=== PATIENT | male | born 1995 | race Two or more races ===

== ENCOUNTER 2020-11-09 14:15 | Emergency (ER) | payer OTHER ==
[2020-11-09 14:39] VITALS: BP 122/61
--- NOTE | 2020-11-09 15:25 | ED Physician Documentation ---
PD HPI MALE - Stated complaint Stated Complaint: MALE - Chief complaint Chief Complaint: General - History obtained from History obtained from: Patient - History of Present Illness Timing - onset: How many days ago (2) Timing - duration: Days (2) Timing - details: Gradual onset, Waxing and waning Associated symptoms: Testiclar pain, Scrotal swelling (no general swelling, but due to the pain, he was examining the scrotum and noted a small bump (nontender).). No: Dysuria, Urinary frequency, Discharge PD HPI MALE CONTRIB FACTORS: Sexually active, Homosexual. No: Exposed to STD Similar symptoms before: Has not had sx before Review of Systems Constitutional: denies: Fever, Chills Nose: denies: Rhinorrhea / runny nose, Congestion Throat: denies: Sore throat Respiratory: denies: Cough PD PAST MEDICAL HISTORY - Present Medications Home Medications: Ambulatory Orders Medication Instructions Recorded Confirmed Ibuprofen [Motrin] 600 mg PO TID PRN #25 tab 11/09/20 - Allergies Allergies/Adverse Reactions: Allergies Allergy/AdvReac Type Severity Reaction Status Date / Time No Known Drug Allergies Allergy Verified 11/09/20 14:39 PD ED PE NORMAL - Vitals Vital signs reviewed: Yes - General General: Alert and oriented X 3, No acute distress, Well developed/nourished - Abdomen Abdomen: Soft, Non tender - Male Male : Other (some tenderness left inguinal area without hernia. Scrotum with small nontendern bump inferior sac. No testicular masses nor tenderness. Not tender at epididymis. Normal lie and cremaster reflex. ) - Rectal Rectal: Deferred - Back Back: No CVA TTP - Derm Derm: Normal color, Warm and dry, No rash Results - Vitals Vitals: Oxygen O2 Source Room air - Labs Labs: Laboratory Tests 11/09/20 17:04 Urine Color YELLOW Urine Clarity CLEAR Urine pH 7.5 Ur Specific [place] 1.020 Urine Protein NEGATIVE Urine Glucose (UA) NEGATIVE Urine Ketones NEGATIVE Urine Occult Blood NEGATIVE Urine Nitrite NEGATIVE Urine Bilirubin NEGATIVE Urine Urobilinogen 0.2 (NORMAL) Ur Leukocyte Esterase NEGATIVE Ur Microscopic Review NOT INDICATED Urine Culture Comments NOT INDICATED - Rads (name of study) scrotal U/S Radiology: Prelim report reviewed (no acute process. small left hydrocele. Incidental 3 mm scrotal calcification left side. Normal blood flow. ), See rad report PD MEDICAL DECISION MAKING - ED course Complexity details: reviewed results (the bump is incidental calcification, likely some old trauma. Not related to current pain. No signs of infection. No torsion. ), re-evaluated patient, considered differential (likely muscular strain. Can get urine and U/S. The bump feels benign. ), d/w patient Departure - Departure Disposition: 01 Home, Self Care Clinical Impression: Testicular/scrotal pain Strain of left inguinal muscle Qualifiers: Encounter type: initial encounter Qualified Code(s): S39.013A - Strain of muscle, fascia and tendon of pelvis, initial encounter Condition: Stable Record reviewed to determine appropriate education?: Yes Instructions: ED Testicular Pain UKO, ED Strain Groin Prescriptions: Ibuprofen [Motrin] 600 mg PO TID PRN #25 tab PRN Reason: Pain Print Language: German Comments: Your ultrasound is normal without any problems with the's testicle or structures. The small bump is a small calcification which is relatively common and not needing any care in particular. I presume the pain is more inflammation along the muscle or ligament of the scrotum. Use some anti-inflammatory such as ibuprofen 2-3 times a day for the next several days. Activity as tolerated. Your urine test is normal without any signs of infection. I would anticipate improvement in this over the next several days. Recheck if not better in the next few days to a week. Discharge Date/Time: 11/09/20 18:09
[2020-11-09] MEDS ORDERED: IBUPROFEN 600 MG TABLET PO STA (15:42)
[2020-11-09 17:13] LABS: BILIRUBIN,URINE NEGATIVE (NEGATIVE); CLARITY,URINE CLEAR (CLEAR); GLUCOSE, URINE (UA) NEGATIVE (NEGATIVE); KETONES,URINE (UA) NEGATIVE (NEGATIVE); LEUKOCYTE ESTERASE, URINE NEGATIVE (NEGATIVE); NITRITE,URINE NEGATIVE (NEGATIVE); OCCULT BLOOD,URINE NEGATIVE (NEGATIVE); PH,URINE 7.5 PH (5.0-7.5); PROTEIN,URINE NEGATIVE (NEGATIVE); UROBILINOGEN,URINE 0.2 (NORMAL) E.U./dL (NORMAL)
--- NOTE | 2020-11-09 18:30 | Ultrasound Report ---
PROCEDURE: Testicle w/Doppler INDICATIONS: left testicle/scrotal pain for few days TECHNIQUE: Real-time scanning was performed of the scrotum and testicles, with image documentation. Color and p ulse Doppler interrogation was performed of both testicles. COMPARISON: None. FINDINGS: Right: Testicle is normal in size at 4.3 x 1.9 x 2.8 cm, and homogenous in echotexture. Epididymis is normal in overall size and morphology. No hydrocele or varicoceles. Overlying scrotal skin is no rmal in thickness. Left: Testicle is normal in size at 74.0 x 1.7 x 3.3 cm, and homogeneous in echotexture. Epididymis is normal in overall size and morphology. Small hydrocele noted. Overlying scrotal skin is normal i n thickness. There is a 3 mm calcification noted in the scrotal subcutaneous tissue laterally. Doppler: Color and pulse Doppler demonstrate normal and symmetric arterial flow in both testicles. IMPRESSION: No evidence of testicular torsion or mass lesion. Small left sided hydrocele. Incidental 3 mm soft tissue calcification noted in the left scrotum Reviewed by: Travon Kerr MD on 11/09/2020 5:29 PM [facility]DAV[facility] Approved by: Travon Kerr MD on 11/09/2020 5:29 PM [facility] Station ID: [id number]
== END 2020-11-09 18:09 | disposition home or self-care (01) ==
LOC: ED 14:15
DX: N50.819 Testicular pain, unspecified (principal); S39.013A Strain of muscle, fascia and tendon of pelvis, initial encounter; X58.XXXA Exposure to other specified factors, initial encounter; N43.3 Hydrocele, unspecified
CPT/HCPCS: 76870; 81003; 93975; 99282; 99284; A9270; 81001; 87086

== ENCOUNTER 2020-11-22 14:11 | Emergency (ER) | payer OTHER ==
--- NOTE | 2020-11-22 14:28 | ED Physician Documentation ---
PD HPI MALE - Stated complaint Stated Complaint: MALE - Chief complaint Chief Complaint: Abd Pain - History obtained from History obtained from: Patient - History of Present Illness Timing - onset: How many weeks ago (3) Timing - duration: Weeks (3) Timing - details: Gradual onset, Still present, Waxing and waning (improved some with recent NSAIDs. He states hurts more with moving and going from sitting to standing. No dysuria.) Associated symptoms: Testiclar pain (and left inguinal area.). No: Dysuria, Urinary frequency, Scrotal swelling PD HPI MALE CONTRIB FACTORS: Sexually active, Homosexual. No: Exposed to STD Recently seen: Emergency Dept (2 weeks ago with presume Dx of inguinal strain and possible epididymal inflammation. Did not seem infectious. U/S done then showed no acute process. Incidental calcification lower scrotum and small hydrocele.) Review of Systems Constitutional: denies: Fever, Chills Nose: denies: Rhinorrhea / runny nose, Congestion Throat: denies: Sore throat Respiratory: denies: Cough : denies: Dysuria, Frequency Skin: denies: Rash, Lesions Neurologic: denies: Focal weakness, Numbness PD PAST MEDICAL HISTORY - Past Medical History Cardiovascular: None Respiratory: None Neuro: None Endocrine/Autoimmune: None - Past Surgical History Past Surgical History: No - Present Medications Home Medications: Ambulatory Orders Medication Instructions Recorded Confirmed Doxycycline Hyclate 100 mg PO BID #14 11/22/20 HYDROcod/ACETAM 5/325 [[place] 5/325] 1 ea PO Q6H PRN #10 tablet 11/22/20 Meloxicam [Mobic] 7.5 mg PO BID 10 Days #14 tablet 11/22/20 - Allergies Allergies/Adverse Reactions: Allergies Allergy/AdvReac Type Severity Reaction Status Date / Time No Known Drug Allergies Allergy Verified 11/22/20 14:26 - Social History Does the pt smoke?: No Smoking Status: Never smoker Does the pt drink ETOH?: No Does the pt have substance abuse?: No - Immunizations Immunizations are current?: No - POLST Patient has POLST: No PD ED PE NORMAL - Vitals Vital signs reviewed: Yes - General General: Alert and oriented X 3, No acute distress, Well developed/nourished - Male Male : Other (similar to 2 weeks ago with tender left inguinal area without rash, mass, hernias. scrotum with small bump inferiorly without tenderness. Testicle itself not tender. Bedside U/S showing normal blood flow in testicle. Some tender mid to upper epididymis. ) - Rectal Rectal: Deferred - Derm Derm: Normal color, Warm and dry Results - Vitals Vitals: Vital Signs - 24 hr 11/22/20 11/22/20 14:18 15:42 Temperature 36 C L 36.8 C Heart Rate 67 69 Respiratory 16 17 Rate Blood Pressure 124/64 117/62 O2 Saturation 99 100 Oxygen O2 Source Room air - Labs Labs: Laboratory Tests 11/22/20 15:10 Urine Color YELLOW Urine Clarity CLEAR Urine pH 7.5 Ur Specific [place] 1.020 Urine Protein NEGATIVE Urine Glucose (UA) NEGATIVE Urine Ketones NEGATIVE Urine Occult Blood NEGATIVE Urine Nitrite NEGATIVE Urine Bilirubin NEGATIVE Urine Urobilinogen 0.2 (NORMAL) Ur Leukocyte Esterase NEGATIVE Ur Microscopic Review NOT INDICATED Urine Culture Comments NOT INDICATED PD MEDICAL DECISION MAKING - ED course Complexity details: reviewed old records, considered differential (seen 2 weeks ago for same with U/S showing no acute process (incidental hydrocele). Rx NSAIDs for presumed muscle strain or inflammatory epididymal pain. He says did not fully improve, and now worse again. Same area/pain. ), d/w patient Departure - Departure Disposition: 01 Home, Self Care Clinical Impression: Testicular/scrotal pain, Epididymal pain Strain of left inguinal muscle Qualifiers: Encounter type: initial encounter Qualified Code(s): S39.013A - Strain of muscl e, fascia and tendon of pelvis, initial encounter Condition: Stable Record reviewed to determine appropriate education?: Yes Instructions: ED Epididymitis, ED Strain Groin Follow-Up: [facility] [Provider Group] [facility] [Provider Group] Prescriptions: Doxycycline Hyclate 100 mg PO BID #14 Meloxicam [Mobic] 7.5 mg PO BID 10 Days #14 tablet HYDROcod/ACETAM 5/325 [[place] 5/325] 1 ea PO Q6H PRN #10 tablet PRN Reason: Pain Print Language: Tongan Comments: This seems likely to still be muscle strain in the groin area. However there is some tenderness in the epididymis as well. This can be inflammatory or infectious at times. We can try a different anti-inflammatory of meloxicam twice daily for a week. Add doxycycline twice daily for a week antibiotic for potential infection. To that add hydrocodone every 4-6 hours if needed for worse pain. Off work for couple of days to help reduce the pain. Follow-up with your primary care in about 3 to 4 days, call for an appointment. You could also follow-up with urology for more specialist opinion. Call the urology office to see if they have a an appointment for next week. Return if worsening. Forms: Activity restrictions Discharge Date/Time: 11/22/20 15:42
[2020-11-22] MEDS ORDERED: HYDROcod/ACETAM 5/325 MG TABLET PO STA (15:00)
[2020-11-22] MEDS ORDERED: DOXYCYCLINE 100 MG TABLET PO STA (15:00)
[2020-11-22] MEDS ORDERED: NAPROXEN 250 MG TABLET PO STA (15:00)
[2020-11-22 15:18] LABS: BILIRUBIN,URINE NEGATIVE (NEGATIVE); GLUCOSE, URINE (UA) NEGATIVE (NEGATIVE); KETONES,URINE (UA) NEGATIVE (NEGATIVE); LEUKOCYTE ESTERASE, URINE NEGATIVE (NEGATIVE); NITRITE,URINE NEGATIVE (NEGATIVE); OCCULT BLOOD,URINE NEGATIVE (NEGATIVE); PH,URINE 7.5 PH (5.0-7.5); PROTEIN,URINE NEGATIVE (NEGATIVE); UROBILINOGEN,URINE 0.2 (NORMAL) E.U./dL (NORMAL)
[2020-11-22 15:19] LABS: CLARITY,URINE CLEAR (CLEAR)
[2020-11-22 15:43] VITALS: BP 117/62
[2020-11-22 22:59] LABS: CHLAMYDIA TRACHOMATIS DNA NEGATIVE (NEGATIVE); NEISSERIA GONORRHOEAE DNA NEGATIVE (NEGATIVE)
== END 2020-11-22 15:42 | disposition home or self-care (01) ==
LOC: ED 14:11
DX: N50.819 Testicular pain, unspecified (principal); N50.82 Scrotal pain; S39.013A Strain of muscle, fascia and tendon of pelvis, initial encounter; X58.XXXA Exposure to other specified factors, initial encounter
CPT/HCPCS: 81003; 87491; 87591; 99283; A9270; 81001; 87086; 87661

== ENCOUNTER 2020-11-25 10:40 | Emergency (ER) | payer OTHER ==
--- NOTE | 2020-11-25 13:02 | ED Physician Documentation ---
PD HPI MALE - Stated complaint Stated Complaint: GROIN PX - Chief complaint Chief Complaint: Abd Pain - History obtained from History obtained from: Patient - Additional information Additional information: 2 weeks left groin pain, focused medial inguinal ligament. Worse with bearing down and peeing, but not dysuria or other urinary sx. Seen here. Testicular sono w hydrocele, otherwise NAD, started doxy yesterday, pain worse and nauseous with the doxy. Also notes now rash on penis. Review of Systems Constitutional: reports: Reviewed and negative Eyes: reports: Reviewed and negative Cardiac: reports: Reviewed and negative Respiratory: reports: Reviewed and negative PD PAST MEDICAL HISTORY - Past Medical History Cardiovascular: None Respiratory: None Neuro: None Endocrine/Autoimmune: None - Past Surgical History Past Surgical History: No - Present Medications Home Medications: Ambulatory Orders Medication Instructions Recorded Confirmed Doxycycline Hyclate 100 mg PO BID #14 11/22/20 HYDROcod/ACETAM 5/325 [[place] 5/325] 1 ea PO Q6H PRN #10 tablet 11/22/20 Meloxicam [Mobic] 7.5 mg PO BID 10 Days #14 tablet 11/22/20 Acyclovir 800 mg PO 5XD #50 tablet 11/25/20 levoFLOXacin [Levofloxacin] 500 mg PO DAILY #10 tablet 11/25/20 - Allergies Allergies/Adverse Reactions: Allergies Allergy/AdvReac Type Severity Reaction Status Date / Time No Known Drug Allergies Allergy Verified 11/25/20 11:01 - Social History Does the pt smoke?: No Smoking Status: Never smoker Does the pt drink ETOH?: No Does the pt have substance abuse?: No - Immunizations Immunizations are current?: No - POLST Patient has POLST: No PD ED PE NORMAL - Vitals Vital signs reviewed: Yes - General General: Alert and oriented X 3, No acute distress - Abdomen Abdomen: Soft, Non tender - Male Male : Other (Slightly herpetic rash on the proximal right side of the penis could be consistent with herpes, some tenderness of the medial inguinal ligament but no masses including with Valsalva and coughing. Testicles are minimally tender may be on the left, normal lie.) - Back Back: No CVA TTP, No spinal TTP - Derm Derm: Normal color, Warm and dry Results - Vitals Vitals: Vital Signs - 24 hr 11/25/20 10:58 Temperature 36.9 C Heart Rate 78 Respiratory 16 Rate Blood Pressure 131/73 H O2 Saturation 100 Oxygen O2 Source Room air PD MEDICAL DECISION MAKING - ED course ED course: 25-year-old gentleman presents with a penile rash and left groin pain, presume this is herpes. A PCR swab was done for this and he will be started on acyclovir. Also having nausea from the antibiotic and I switch him to a yolis quinolone. With the lymphadenopathy noting that he is homosexual we discussed HIV testing, but he is only had a single partner and declines. Departure - Departure Disposition: Home, Self Care Clinical Impression: Lymphadenopathy Condition: Good Record reviewed to determine appropriate education?: Yes Prescriptions: Acyclovir 800 mg PO 5XD #50 tablet levoFLOXacin [Levofloxacin] 500 mg PO DAILY #10 tablet Comments: 495 / 5000 Translation results Ernesto se mencion, creo que probablemente tiene larry infeccin por herpes y eso le estaba causando la inflamacin de los ganglios linfticos en la haim. Estamos haciendo pruebas de herpes, nuevamente los resultados deberan estar de vuelta en unos linares y te llamar. [place] se mencion, creo que probablemente tiene larry infeccin por herpes y eso le estaba causando la inflamacin de los ganglios linfticos en la haim. Llame a paulino mdico para programar larry nila de seguimiento, programe la prxima nila disponible. Mientras tanto, regrese en cualquier momento si empeora o si aparecen nuevos sntomas. Forms: Activity restrictions
[2020-11-25 15:43] VITALS: BP 118/71
--- NOTE | 2020-11-25 15:45 | Ultrasound Report ---
PROCEDURE: Testicle w/Doppler INDICATIONS: L groin pain TECHNIQUE: Real-time scanning was performed of the scrotum and testicles, with image documentation. Color and p ulse Doppler interrogation was performed of both testicles. COMPARISON: November 09, 2020 testicular ultrasound FINDINGS: Right: Testicle is normal in size at 3.8 x 2.1 x 2.7 cm, and homogenous overall in echotexture. A f ew scattered microliths are unchanged. Epididymis is normal in overall size and morphology. No hydro rosa or varicoceles. Overlying scrotal skin is normal in thickness. Left: Testicle is normal in size at 3.7 x 1.8 x 2.6 cm, and homogeneous overall in echotexture. A f ew scattered microliths are unchanged. Epididymis is normal in overall size and morphology. No hydro rosa or varicoceles. Overlying scrotal skin is normal in thickness. Doppler: Color and pulse Doppler demonstrate normal and symmetric arterial flow in both testicles. Previously seen calcification within the scrotal soft tissues is not appreciated on today's evaluatio n. IMPRESSION: No evidence of testicular torsion or inflammation. Low density testicular microlithiasis. Reviewed by: Delio Purcell on 11/25/2020 2:43 PM BOB Approved by: Delio Purcell on 11/25/2020 2:43 PM BOB Station ID: [id number]
--- NOTE | 2020-11-25 15:48 | Ultrasound Report ---
PROCEDURE: Pelvic Limited or F/U INDICATIONS: L GROIN;EVAL INGUINAL CANAL TECHNIQUE: Real-time transabdominal scanning was performed of the left groin, with image documentation. COMPARISON: None. FINDINGS: Sonographic evaluation of the left groin shows no evidence of hernia. There are numerous morphologica lly normal-appearing and normal-sized lymph nodes highlighted in the left groin. No solid mass or abnormal fluid collection. IMPRESSION: No enlarged lymph nodes. Lymph nodes imaged in the left groin are of normal morphology a nd size. If there is clinical tenderness, recommend clinical follow-up to ensure resolution. Reviewed by: Delio Purcell on 11/25/2020 2:46 PM BOB Approved by: Delio Purcell on 11/25/2020 2:46 PM BOB Station ID: [id number]
== END 2020-11-25 15:46 | disposition home or self-care (01) ==
LOC: ED 10:40
DX: A60.01 Herpesviral infection of penis (principal); R59.0 Localized enlarged lymph nodes; R11.0 Nausea; T36.4X5A Adverse effect of tetracyclines, initial encounter
CPT/HCPCS: 87529; 93975; 99284

== ENCOUNTER 2021-02-07 20:08 | Emergency (ER) | payer OTHER ==
[2021-02-07 20:35] LABS: BASOPHILS % (AUTO) 0.5 %; EOSINOPHILS # (AUTO) 0.1 10^3/uL (0.0-0.7); EOSINOPHILS % (AUTO) 0.6 %; HCT - HEMATOCRIT 45.5 % (42.0-52.0); HGB - HEMOGLOBIN 16.4 g/dL (14.0-18.0); LYMPHOCYTES # (AUTO) 3.1 10^3/uL (1.5-3.5); LYMPHOCYTES % (AUTO) 37.5 %; MEAN CORPUSCULAR HEMOGLOBIN 31.1 pg (27.0-31.0); MEAN CORPUSCULAR VOLUME 86.3 fL (80.0-94.0); MEAN PLATELET VOLUME 10.5 fL (7.4-11.4); MONOCYTES # (AUTO) 0.6 10^3/uL (0.0-1.0); MONOCYTES % (AUTO) 7.4 %; NEUTROPHILS # (AUTO) 4.4 10^3/uL (1.5-6.6); NEUTROPHILS % (AUTO) 53.8 %; PLT - PLATELET COUNT 241 10^3/uL (130-450); RED BLOOD COUNT 5.27 10^6/uL (4.70-6.10); RED CELL DISTRIBUTION WIDTH 11.8 % (12.0-15.0); WHITE BLOOD COUNT 8.2 x10^3/uL (4.8-10.8)
[2021-02-07 20:46] LABS: ALBUMIN 5.1 g/dL (3.2-5.5); ALBUMIN/GLOBULIN RATIO 1.4 (1.0-2.2); BILIRUBIN,TOTAL 1.5 mg/dL (0.2-1.0); CREATININE 1.3 mg/dL (0.6-1.2); POTASSIUM 2.6 mmol/L (3.5-5.0); TOTAL PROTEIN 8.8 g/dL (6.7-8.2)
--- NOTE | 2021-02-07 21:06 | XRAY Report ---
PROCEDURE: Chest 1 View X-Ray INDICATIONS: chest pain TECHNIQUE: One view of the chest was acquired. COMPARISON: None. FINDINGS: Surgical changes and devices: None. Lungs and pleura: No pleural effusions or pneumothorax. Lungs are clear. Mediastinum: Mediastinal contours appear normal. Heart size is normal. Bones and chest wall: No suspicious bony lesions. Overlying soft tissues appear unremarkable. IMPRESSION: Chest without acute cardiopulmonary abnormalities. Reviewed by: Mikey Diaz MD on 02/07/2021 9:05 PM [facility] Approved by: Mikey Diaz MD on 02/07/2021 9:05 PM [facility] Station ID: [id number]
[2021-02-07] MEDS ORDERED: SODIUM CHLORIDE 0.9% 1,000 ML IV STA ×2 (21:08→21:32)
--- NOTE | 2021-02-07 21:10 | ED Physician Documentation ---
History of Present Illness - Stated complaint Stated Complaint: SOA - Chief complaint Chief Complaint: Resp - History obtained from History obtained from: Patient, Other (spouse () who is in ED at bedside. There is a language barrier: patient speaks Armenian but is able to communicate to some extent with me in Armenian, and patients spouse is able to translate, as well. The translating service ([employer]) is down at this time) - History of Present Illness Timing: Enter time (12:00), Today Pain level max: 0 Pain level now: 0 Improved by: rest Worsened by: standing, amublation - Additonal information Additional information: since approximately noon today, patient has had been dizzy/lightheaded, felt like he was going to pass out, nausea and vomiting, generalized weakness. Symptoms are worse with standing but no vertigo component (not worse with moving/turning head). Review of Systems Constitutional: reports: Reviewed and negative Eyes: reports: Reviewed and negative Cardiac: reports: Reviewed and negative Respiratory: reports: Reviewed and negative GI: reports: Nausea, Vomiting. denies: Abdominal Pain Neurologic: reports: Generalized weakness. denies: Focal weakness, Numbness, Headache PD PAST MEDICAL HISTORY - Past Medical History Cardiovascular: None Respiratory: None Neuro: None Endocrine/Autoimmune: None - Past Surgical History Past Surgical History: No - Present Medications Home Medications: Ambulatory Orders Medication Instructions Recorded Confirmed buPROPion [Wellbutrin Sr] 100 mg PO DAILY 02/07/21 02/07/21 - Allergies Allergies/Adverse Reactions: Allergies Allergy/AdvReac Type Severity Reaction Status Date / Time No Known Drug Allergies Allergy Verified 02/07/21 20:29 - Social History Does the pt smoke?: No Smoking Status: Never smoker Does the pt drink ETOH?: No Does the pt have substance abuse?: No - Immunizations Immunizations are current?: No - POLST Patient has POLST: No PD ED PE NORMAL - Vitals Vital signs reviewed: Yes - General General: Alert and oriented X 3, No acute distress, Well developed/nourished - HEENT HEENT: Atraumatic, PERRL, EOMI - Neck Neck: Supple, no meningeal sign - Cardiac Cardiac: RRR, No murmur, No gallop, No rub - Respiratory Respiratory: No respiratory distress, Clear bilaterally - Abdomen Abdomen: Soft, Non tender - Derm Derm: Normal color, Warm and dry - Neuro Neuro: Alert and oriented X 3, 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, No motor deficit, No sensory deficit, Normal speech Eye Opening: Spontaneous Motor: Obeys Commands Verbal: Oriented GCS Score: 15 Results - Vitals Vitals: Oxygen O2 Source Room air - Labs Labs: Laboratory Tests 02/07/21 02/07/21 02/07/21 20:16 20:16 20:56 WBC 8.2 RBC 5.27 Hgb 16.4 Hct 45.5 MCV 86.3 MCH 31.1 H MCHC 36.0 RDW 11.8 L Plt Count 241 MPV 10.5 Neut # (Auto) 4.4 Lymph # (Auto) 3.1 [place] # (Auto) 0.6 Eos # (Auto) 0.1 Baso # (Auto) 0.0 Absolute Nucleated RBC 0.00 Nucleated RBC % 0.0 Sodium 139 Potassium 2.6 L Chloride 101 Carbon Dioxide 23 Anion Gap 15.0 H BUN 19 Creatinine 1.3 H Estimated GFR (MDRD) 67 L Glucose 115 H Calcium 10.0 Total Bilirubin 1.5 H AST 25 ALT 18 Alkaline Phosphatase 60 Troponin I High Sens 2.6 Total Protein 8.8 H Albumin 5.1 Globulin 3.7 Albumin/Globulin Ratio 1.4 Lipase 55 H - Rads (name of study) chest xray Radiology: Prelim report reviewed PD MEDICAL DECISION MAKING - ED course Complexity details: reviewed results, re-evaluated patient, considered differential, d/w patient ED course: presents after symptoms suggestive of near-syncope although he also provided descriptors to ED RN when triaged regarding dyspnea and muscle cramping that could also suggest a component of anxiety (with hyperventilation syndrome). He is found to be hypokalemic with potassium of 2.6. He is given IV and PO potassium, 2 liters NS, 4mg IV zofran. On reevaluation, he reports feeling much improved and is comfortable with d/c home Departure - Departure Disposition: 01 Home, Self Care Clinical Impression: Dizziness, Hypokalemia Condition: Good Instructions: ED Dizziness UKO, ED Potassium Deficiency Print Language: Armenian Comments: Tonight's tests do not reveal a cause of your symptoms. Your potassium level is low, but this would be unlikely to cause the symptoms you describe. Follow up with your primary care provider for reevaluation. Discharge Date/Time: 02/07/21:17
[2021-02-07] MEDS ORDERED: POTASSIUM CHLORIDE 20 MEQ TABLET PO STA (21:31)
[2021-02-07] MEDS ORDERED: POTASSIUM CHLOR 10 MEQ/100 ML 10 MEQ/100 ML BAG IV STA (21:31)
[2021-02-07] MEDS ORDERED: ONDANSETRON 4 MG/2 ML VIAL IVP STA (21:32)
[2021-02-07 22:36] VITALS: BP 118/83
== END 2021-02-07 23:17 | disposition home or self-care (01) ==
LOC: ED 20:08
DX: R42 Dizziness and giddiness (principal); E87.6 Hypokalemia; I49.3 Ventricular premature depolarization; R11.2 Nausea with vomiting, unspecified; R53.1 Weakness; R06.00 Dyspnea, unspecified
CPT/HCPCS: 36415; 71045; 80053; 83690; 84484; 85025; 93005; 96361; 96374; 99283; 99284; A9270

== ENCOUNTER 2021-06-30 18:45 | Emergency (ER) | payer OTHER ==
[2021-06-30 19:47] LABS: BILIRUBIN,URINE NEGATIVE (NEGATIVE); GLUCOSE, URINE (UA) NEGATIVE (NEGATIVE); KETONES,URINE (UA) NEGATIVE (NEGATIVE); LEUKOCYTE ESTERASE, URINE NEGATIVE (NEGATIVE); NITRITE,URINE NEGATIVE (NEGATIVE); OCCULT BLOOD,URINE NEGATIVE (NEGATIVE); PH,URINE 6.5 PH (5.0-7.5); PROTEIN,URINE NEGATIVE (NEGATIVE); UROBILINOGEN,URINE 0.2 (NORMAL) E.U./dL (NORMAL)
--- NOTE | 2021-06-30 19:48 | ED Physician Documentation ---
History of Present Illness - Stated complaint Stated Complaint: MALE - Chief complaint Chief Complaint: General - Additonal information Additional information: 25-year-old male comes to the emergency department for evaluation of primarily left scrotal pain. He reports that this has been a recurrent problem since October 2020. He has been seen here for this previously and was initially thought to perhaps have a groin strain. He states that when he urinates it is often painful and sometimes there is white sediment. He has had no fevers. No scrotal swelling. No history of STD. He is sexually active with men. He reports 100% condom use. Review of Systems Constitutional: denies: Fever, Chills Nose: reports: Reviewed and negative Throat: reports: Reviewed and negative Cardiac: reports: Reviewed and negative Respiratory: reports: Reviewed and negative GI: reports: Reviewed and negative : reports: Dysuria, Testicular pain. denies: Discharge Skin: reports: Reviewed and negative Musculoskeletal: reports: Reviewed and negative PD PAST MEDICAL HISTORY - Past Medical History Past Medical History: No Cardiovascular: None Respiratory: None Neuro: None Endocrine/Autoimmune: None - Past Surgical History Past Surgical History: No - Present Medications Home Medications: Ambulatory Orders Medication Instructions Recorded Confirmed No Known Home Medications 06/30/21 06/30/21 - Allergies Allergies/Adverse Reactions: Allergies Allergy/AdvReac Type Severity Reaction Status Date / Time No Known Drug Allergies Allergy Verified 06/30/21 18:55 - Social History Does the pt smoke?: No Smoking Status: Never smoker Does the pt drink ETOH?: No Does the pt have substance abuse?: No - Immunizations Immunizations are current?: No - POLST Patient has POLST: No PD ED PE EXPANDED - General General: Alert, No acute distress - Male Male : Normal lie/cremastaric, Tenderness (Mild tenderness of the left testicle and epididymis. No inguinal lymphadenopathy.), Geophysical Prospector present. No: Circumcised, Skin lesions, Discharge, Testicular Mass Results - Vitals Vitals: Vital Signs - 24 hr 06/30/21 18:55 Temperature 37.2 C Heart Rate 80 Respiratory 19 Rate Blood Pressure 116/74 O2 Saturation 100 Oxygen O2 Source Room air - Labs Labs: Laboratory Tests 06/30/21 19:24 Urine Color YELLOW Urine Clarity CLEAR Urine pH 6.5 Ur Specific [place] 1.020 Urine Protein NEGATIVE Urine Glucose (UA) NEGATIVE Urine Ketones NEGATIVE Urine Occult Blood NEGATIVE Urine Nitrite NEGATIVE Urine Bilirubin NEGATIVE Urine Urobilinogen 0.2 (NORMAL) Ur Leukocyte Esterase NEGATIVE Ur Microscopic Review NOT INDICATED Urine Culture Comments NOT INDICATED - Rads (name of study) testicular us Radiology: Other (Per instrument technologist no findings of epididymitis or orchiditis. Possible small left inguinal hernia) PD MEDICAL DECISION MAKING - ED course Complexity details: reviewed results, re-evaluated patient, d/w patient ED course: 25-year-old male presents emergency department for evaluation of 8 months left groin pain he does report history of sex with men but consistently uses condoms. He also reports dysuria though the urine shows no signs of infection. Previous STI testing was negative. GC testing is pending today. 9 his exam was unremarkable though he did have some testicular tenderness on the left. Ultrasound did an exam and found no findings of epididymitis or orchitis but they do suspect he has a very small left inguinal hernia. This finding was discussed with the patient using a Luxembourger teleinterpreter. Patient is advised to follow-up closely with [facility] to obtain surgical referral. Emergent return precautions otherwise discussed Departure - Departure Clinical Impression: Left inguinal hernia Condition: Stable Record reviewed to determine appropriate education?: Yes Print Language: Luxembourger Comments: Song ibarra were seen today in the emergency department for pain in your left groin. We did do an ultrasound of your groin and testicles. It looks like you have a very small left inguinal hernia. This is the most likely cause of your pain. You need to discuss this with [facility] as they should make a referral for you to a surgeon to determine if it can or should be repaired An inguinal hernia occurs when tissue, such as part of the intestine, protrudes through a weak spot in the abdominal muscles. The resulting bulge can be painful, especially when you cough, bend over or lift a heavy object. However, many hernias do not cause pain. An inguinal hernia isn't necessarily dangerous. It doesn't improve on its own, however, and can lead to life-threatening complications. Your doctor is likely to recommend surgery to fix an inguinal hernia that's painful or enlarging. Inguinal hernia repair is a common surgical procedure. Srinivas, ted fue visto hoy en el departamento de emergencias por dolor en la haim izquierda. Hicimos larry ecografa de la haim y los testculos. Parece que tiene larry hernia inguinal izquierda muy pequea. Esta es la causa ms probable de paulino dolor. Debe discutir esto con el mdico de andre Goodwin, ya que deben hacer larry referencia para usted a un cirujano para determinar si puede o debe repararse. Larry hernia inguinal ocurre cuando el tejido, antonette parte del intestino, sobresale a travs de un punto dbil en los msculos abdominales. La protuberancia resultante puede ser dolorosa, especialmente cuando tose, se agacha o levanta un objeto pesado. Sin embargo, muchas hernias no causan dolor. Larry hernia inguinal no es necesariamente peligrosa. Sin embargo, no mejora por s solo y puede provocar complicaciones potencialmente mortales. Es probable que paulino mdico le recomiende larry ciruga para reparar larry hernia inguinal que es dolorosa o agrandada. La reparacin de la hernia inguinal es un procedimiento q uirrgico comn
[2021-06-30 19:53] LABS: CLARITY,URINE CLEAR (CLEAR)
--- NOTE | 2021-06-30 21:00 | Ultrasound Report ---
PROCEDURE: Testicle w/Doppler INDICATIONS: testicular pain; pain with sex TECHNIQUE: Real-time scanning was performed of the scrotum and testicles, with image documentation. Color and p ulse Doppler interrogation was performed of both testicles. COMPARISON: Prior testicular ultrasound studies 11/25/2020 and 11/09/2020.. FINDINGS: Right: Testicle is normal in size at 4.3 x 2.0 x 2.6 cm, and homogenous in echotexture. Epididymis is normal in overall size and morphology. No hydrocele or varicoceles. Overlying scrotal skin is no rmal in thickness. Left: Testicle is normal in size at 3.9 x 2.0 x 2.7 cm, and homogeneous in echotexture. Epididymis is normal in overall size and morphology. No hydrocele or varicoceles. Overlying scrotal skin is no rmal in thickness. There is a questionable nonreducible fat-containing left inguinal hernia with a r elatively small suspected hernia measuring 2.5 x 0.6 cm. Doppler: Color and pulse Doppler demonstrate normal and symmetric arterial flow in both testicles. IMPRESSION: No testicular or epididymitis abnormality found, no evidence of testicular torsion. Possible small no nreducible left inguinal hernia. Depending on the clinical status follow-up by dedicated CT scanning through this area may be warranted. Reviewed by: Winston Dalal MD on 06/30/2021 8:59 PM PDT Approved by: Winston Dalal MD on 06/30/2021 8:59 PM PDT Station ID: [id number]
[2021-06-30 21:03] VITALS: BP 114/78
== END 2021-06-30 21:07 | disposition home or self-care (01) ==
LOC: ED 18:45
DX: K40.90 Unilateral inguinal hernia, without obstruction or gangrene, not specified as recurrent (principal)
CPT/HCPCS: 81001; 81003; 87086; 93975; 99282; 99284

== ENCOUNTER 2021-09-27 11:15 | Emergency (ER) | payer OTHER ==
[2021-09-27 11:28] VITALS: BP 133/63
--- OUTSIDE RECORDS SUMMARY | 2021-09-27 11:53 | EXTERNAL MEDICAL SUMMARY RPT | Continuity of Care Document ---
:1995 Author Organization [place] Address [address] [place] [address] Phone Allergies and Intolerances date description facility type (no date) No Known Drug Allergies [facility] (unkn own) Encounters No information. Functional Status No information. Immunizations No information. Medications date description facility [id number] Levofloxacin 750 MG Oral Tablet [facility] [id number] emtricitabine-tenofovir (tdf) All [id number]+0000 emtricitabine-tenofovir (tdf) All Problems No information. Procedures date description facility [id number] [facility] Results/Labs test date author facility value unit interpret ation Result panel 1 (unknown) (no date) (unknown) (unknown) 0.2 E.U./dL (unkn own) (unknown) (no date) (unknown) (unknown) 1.020 (units (unkn own) unknown) (unknown) (no date) (unknown) (unknown) 2+ (units (unkn own) unknown) (unknown) (no date) (unknown) (unknown) 7.0 (units (unkn own) unknown) (unknown) (no date) (unknown) (unknown) NEGATIVE (units (unkn own) unknown) (unknown) (no date) (unknown) (unknown) NEGATIVE g/dL (unkn own) (unknown) (no date) (unknown) (unknown) SL CLOUDY (units (unk nown) unknown) (unknown) (no date) (unknown) (unknown) TRACE (units (unkn own) unknown) (unknown) (no date) (unknown) (unknown) YELLOW (units (unkn own) unknown) Result panel 2 (unknown) (no date) (unknown) (unknown) 0-1 /HPF (units (unkn own) unknown) (unknown) (no date) (unknown) (unknown) 0-1/HPF (units (unkn own) unknown) (unknown) (no date) (unknown) (unknown) 0.2 E.U./dL (unkn own) (unknown) (no date) (unknown) (unknown) 1+ (units (unkn own) unknown) (unknown) (no date) (unknown) (unknown) 1-5/HPF (units (unkn own) unknown) (unknown) (no date) (unknown) (unknown) 1.020 (units (unkn own) unknown) (unknown) (no date) (unknown) (unknown) 2+ (units (unkn own) unknown) (unknown) (no date) (unknown) (unknown) 7.0 (units (unkn own) unknown) (unknown) (no date) (unknown) (unknown) Cult Not (units (unkn own) Indicated unknown) (unknown) (no date) (unknown) (unknown) NEGATIVE (units (unkn own) unknown) (unknown) (no date) (unknown) (unknown) NEGATIVE g/dL (unkn own) (unknown) (no date) (unknown) (unknown) None Seen (units (unk nown) unknown) (unknown) (no date) (unknown) (unknown) SL CLOUDY (units (unk nown) unknown) (unknown) (no date) (unknown) (unknown) TRACE (units (unkn own) unknown) (unknown) (no date) (unknown) (unknown) YELLOW (units (unkn own) unknown) Result panel 3 (unknown) (no (unknown) (unknown) (no value) (units (unk nown) date) unknown) (unknown) (no (unknown) (unknown) [address] [place] [address] (units (unknown) date) unknown) (unknown) (no (unknown) (unknown) [place], [place] (units ( unknown) date) [id number] unknown) (unknown) (no (unknown) (unknown) [facility] (units (unknown) date) unknown) (unknown) (no (unknown) (unknown) Signed (units (unkno wn) date) unknown) (unknown) (no (unknown) (unknown) Ultrasound (units (unk nown) date) Report unknown) (unknown) (no (unknown) (unknown) (no value) (units (unk nown) date) unknown) (unknown) (no (unknown) (unknown) 08/13/21 (units (unkno wn) date) unknown) (unknown) (no (unknown) (unknown) 1. Left (units (unkno wn) date) varicocele unknown) demonstrated. (unknown) (no (unknown) (unknown) 2. Mild (units (unkno wn) date) increased unknown) vascularity within the left epididymis may reflect a possible (unknown) (no (unknown) (unknown) Approved by: (units (u nknown) date) Rafal Stovall, unknown) Krish on 08/13/2021 at 20:49 (unknown) (no (unknown) (unknown) COMPARISON: (units (un known) date) None. unknown) (unknown) (no (unknown) (unknown) Color and pulse (units (unknown) date) Doppler unknown) interrogation was performed of both testicles. (unknown) (no (unknown) (unknown) Dictated by: (units (u nknown) date) Rafal Stovall, unknown) Krish on 08/13/2021 at 20:45 (unknown) (no (unknown) (unknown) Doppler: Color (units (unknown) date) and pulse Doppler unknown) demonstrate patent arterial and venous flow (unknown) (no (unknown) (unknown) Epididymis is (units ( unknown) date) normal in overall unknown) size and morphology. No hydrocele or (unknown) (no (unknown) (unknown) Epididymis is (units ( unknown) date) normal in overall unknown) size and morphology. There is suggestion of (unknown) (no (unknown) (unknown) FINDINGS: (units (unkn own) date) unknown) (unknown) (no (unknown) (unknown) IMPRESSION: (units (un known) date) unknown) (unknown) (no (unknown) (unknown) INDICATIONS: (units (u nknown) date) TESTICULAR PAIN unknown) (unknown) (no (unknown) (unknown) Left: Testicle (units (unknown) date) measures 3.9 x unknown) 2.5 x 2.6 cm and appears homogeneous in (unknown) (no (unknown) (unknown) Overlying (units (unkn own) date) scrotal skin is unknown) normal in thickness. (unknown) (no (unknown) (unknown) Real-time (units (unkn own) date) scanning was unknown) performed of the scrotum and testicles, with image (unknown) (no (unknown) (unknown) Right: Testicle (units (unknown) date) measures 4.1 x unknown) 2.7 x 2.6 cm and appears homogenous in (unknown) (no (unknown) (unknown) TECHNIQUE: (units (unk nown) date) unknown) (unknown) (no (unknown) (unknown) epididymitis. (units ( unknown) date) unknown) (unknown) (no (unknown) (unknown) increased (units (unkn own) date) vascularity unknown) within the epididymis. No hydrocele. There is a left (unknown) (no (unknown) (unknown) measuring up to (units (unknown) date) approximately 0.4 unknown) cm with increased vascularity during (unknown) (no (unknown) (unknown) testicles (units (unkn own) date) bilaterally. No unknown) definite asymmetrically increased flow demonstrated. (unknown) (no (unknown) (unknown) Accession (units (unkn own) date) Number: unknown) [id number] (unknown) (no (unknown) (unknown) Age/Sex: 26 / M (units (unknown) date) Date of unknown) Service: (unknown) (no (unknown) (unknown) : 1995 (units (unknown) date) Acct:[id number] unknown) (unknown) (no (unknown) (unknown) Loc: ED (units (unkno wn) date) unknown) (unknown) (no (unknown) (unknown) [id number] (units (unk nown) date) unknown) (unknown) (no (unknown) (unknown) Ordering (units (unkno wn) date) Provider: unknown) Ama Barr (unknown) (no (unknown) (unknown) PROCEDURE: US (units (unknown) date) SCROTUM unknown) (unknown) (no (unknown) (unknown) Patient: (units (unkno wn) date) Song Romo unknown) MR#: (unknown) (no (unknown) (unknown) Procedure: US (units ( unknown) date) scrotum unknown) (unknown) (no (unknown) (unknown) Valsalva. (units (unkn own) date) unknown) (unknown) (no (unknown) (unknown) documentation. (units (unknown) date) unknown) (unknown) (no (unknown) (unknown) echotexture. (units (u nknown) date) unknown) (unknown) (no (unknown) (unknown) mild (units (unkno wn) date) unknown) (unknown) (no (unknown) (unknown) varicocele (units (unk nown) date) unknown) (unknown) (no (unknown) (unknown) varicoceles. (units (u nknown) date) unknown) (unknown) (no (unknown) (unknown) within the (units (unk nown) date) unknown) Result panel 4 (unknown) (no date) (unknown) (unknown) NOT DETECTED (units ( unknown) unknown) Result panel 5 (unknown) (no (unknown) (unknown) (no value) (units (unk nown) date) unknown) (unknown) (no (unknown) (unknown) Date of Service: (units (unknown) date) 08/13/21 unknown) (unknown) (no (unknown) (unknown) (no value) (units (unk nown) date) unknown) (unknown) (no (unknown) (unknown) Allergies (units (unkn own) date) unknown) (unknown) (no (unknown) (unknown) ED Orders (units (unkn own) date) unknown) (unknown) (no (unknown) (unknown) Emergency Report (units (unknown) date) unknown) (unknown) (no (unknown) (unknown) [facility] (units (unknown) date) [address] unknown) [place] [address] (unknown) (no (unknown) (unknown) Lab Results (units (un known) date) unknown) (unknown) (no (unknown) (unknown) Vital Signs - 8 (units (unknown) date) hr unknown) (unknown) (no (unknown) (unknown) (no value) (units (unk nown) date) unknown) (unknown) (no (unknown) (unknown) 08/13/21 (units (unkno wn) date) 08/13/21 unknown) Range/Units (unknown) (no (unknown) (unknown) 18:05 18:05 (units (un known) date) unknown) (unknown) (no (unknown) (unknown) 08/13/21 (units (unkno wn) date) unknown) (unknown) (no (unknown) (unknown) [id number] (units (unkn own) date) unknown) (unknown) (no (unknown) (unknown) 08/13/21 18:05 (units (unknown) date) unknown) (unknown) (no (unknown) (unknown) 08/13/21 19:20 (units (unknown) date) unknown) (unknown) (no (unknown) (unknown) 17:51 (units (unkno wn) date) unknown) (unknown) (no (unknown) (unknown) Age/Sex: 26 / M (units (unknown) date) unknown) (unknown) (no (unknown) (unknown) Allergy/AdvReac (units (unknown) date) Type Severity unknown) Reaction Status Date / Time (unknown) (no (unknown) (unknown) Amorphous (units (unkn own) date) Sediment 1+ unknown) (unknown) (no (unknown) (unknown) Blood Pressure (units (unknown) date) 130/75 08/13/21 unknown) 17:51 (unknown) (no (unknown) (unknown) Blood Pressure (units (unknown) date) 130/75 unknown) (unknown) (no (unknown) (unknown) Chief complaint: (units (unknown) date) Urogenital-Male unknown) (unknown) (no (unknown) (unknown) Chlamydia (units (unkn own) date) Gonorrhea PCR unknown) -URINE Stat (unknown) (no (unknown) (unknown) Course (units (unkno wn) date) unknown) (unknown) (no (unknown) (unknown) : 1995 (units (unknown) date) Acct:[id number] unknown) (unknown) (no (unknown) (unknown) ER Physician: (units ( unknown) date) Nicolas Whitehead unknown) D.O. (unknown) (no (unknown) (unknown) Exam (units (unkno wn) date) unknown) (unknown) (no (unknown) (unknown) General (units (unkno wn) date) unknown) (unknown) (no (unknown) (unknown) HPI - Male (units (unk nown) date) Genitourinary unknown) (unknown) (no (unknown) (unknown) Initial Vital (units ( unknown) date) Signs unknown) (unknown) (no (unknown) (unknown) Initial Vital (units ( unknown) date) Signs: unknown) (unknown) (no (unknown) (unknown) Lab Data (units (unkno wn) date) unknown) (unknown) (no (unknown) (unknown) Labs: (units (unkno wn) date) unknown) (unknown) (no (unknown) (unknown) MDM - Male (units (unk nown) date) Genitourinary unknown) (unknown) (no (unknown) (unknown) Mode of arrival: (units (unknown) date) Ambulatory unknown) (unknown) (no (unknown) (unknown) N gonorrhoeae (units ( unknown) date) DNA (PCR) Not unknown) detected (unknown) (no (unknown) (unknown) No Known Drug (units ( unknown) date) Allergies Allergy unknown) Verified 08/13/21 17:53 (unknown) (no (unknown) (unknown) Ordered: (units (unkno wn) date) unknown) (unknown) (no (unknown) (unknown) Orders (units (unkno wn) date) unknown) (unknown) (no (unknown) (unknown) Patient: (units (unkno wn) date) Song Romo unknown) MR#: M (unknown) (no (unknown) (unknown) Pulse Oximetry (units (unknown) date) 100 08/13/21 unknown) 17:51 (unknown) (no (unknown) (unknown) Pulse Oximetry (units (unknown) date) 100 unknown) (unknown) (no (unknown) (unknown) Pulse Rate 75 (units (unknown) date) 08/13/21 17:51 unknown) (unknown) (no (unknown) (unknown) Pulse Rate 75 (units ( unknown) date) unknown) (unknown) (no (unknown) (unknown) Related Data (units (u nknown) date) unknown) (unknown) (no (unknown) (unknown) Respiratory Rate (units (unknown) date) 20 08/13/21 unknown) 17:51 (unknown) (no (unknown) (unknown) Respiratory Rate (units (unknown) date) 20 unknown) (unknown) (no (unknown) (unknown) Signed By: (units (unk nown) date) unknown) (unknown) (no (unknown) (unknown) Source: patient (units (unknown) date) unknown) (unknown) (no (unknown) (unknown) Stated (units (unkno wn) date) complaint: unknown) SCROTAL AND LEFT TESICULAR PAIN (unknown) (no (unknown) (unknown) Temperature (units (un known) date) 98.9 F 08/13/21 unknown) 17:51 (unknown) (no (unknown) (unknown) Temperature 98.9 (units (unknown) date) F unknown) (unknown) (no (unknown) (unknown) Time Seen by (units (u nknown) date) Provider: unknown) 08/13/21 19:19 (unknown) (no (unknown) (unknown) US scrotum Stat (units (unknown) date) unknown) (unknown) (no (unknown) (unknown) Ur Chlamydia DNA (units (unknown) date) (PCR) Not unknown) detected (unknown) (no (unknown) (unknown) Ur Culture (units (unk nown) date) Indicated? Cult unknown) not indicated (unknown) (no (unknown) (unknown) Ur Leukocyte (units (u nknown) date) Esterase unknown) Negative (NEGATIVE) (unknown) (no (unknown) (unknown) Ur Specific (units (un known) date) [place] 1.020 unknown) (1.000-1.035) (unknown) (no (unknown) (unknown) Ur Squamous (units (un known) date) Epith Cells 0-1 unknown) /hpf (0-5/HPF) (unknown) (no (unknown) (unknown) Urinalysis and (units (unknown) date) Microscopic Stat unknown) (unknown) (no (unknown) (unknown) Urine Appearance (units (unknown) date) Sl cloudy unknown) (unknown) (no (unknown) (unknown) Urine Bacteria (units (unknown) date) None seen unknown) (None) (unknown) (no (unknown) (unknown) Urine Bilirubin (units (unknown) date) Negative unknown) (NEGATIVE) (unknown) (no (unknown) (unknown) Urine Color (units (un known) date) Yellow unknown) (unknown) (no (unknown) (unknown) Urine Glucose (units ( unknown) date) (UA) Negative unknown) (Negative) g/dL (unknown) (no (unknown) (unknown) Urine Ketones (units ( unknown) date) Negative unknown) (NEGATIVE) (unknown) (no (unknown) (unknown) Urine Nitrate (units ( unknown) date) Negative unknown) (Negative) (unknown) (no (unknown) (unknown) Urine Occult (units (u nknown) date) Blood 2+ H unknown) (Negative) (unknown) (no (unknown) (unknown) Urine Protein (units ( unknown) date) Trace H unknown) (Negative) (unknown) (no (unknown) (unknown) Urine RBC (units (unkn own) date) 1-5/hpf unknown) (0-5/HPF) (unknown) (no (unknown) (unknown) Urine (units (unkno wn) date) Urobilinogen 0.2 unknown) (0.2) E.U./dL (unknown) (no (unknown) (unknown) Urine WBC (units (unkn own) date) 0-1/hpf unknown) (0-5/HPF) (unknown) (no (unknown) (unknown) Urine pH 7.0 (units ( unknown) date) (4.5-8.0) unknown) (unknown) (no (unknown) (unknown) Vital Signs (units (un known) date) unknown) (unknown) (no (unknown) (unknown) Vital signs: (units (u nknown) date) unknown) Result panel 6 (unknown) (no (unknown) (unknown) (no value) (units (unk nown) date) unknown) (unknown) (no (unknown) (unknown) Radiologist's (units ( unknown) date) Impression: unknown) (unknown) (no (unknown) (unknown) (no value) (units (unk nown) date) unknown) (unknown) (no (unknown) (unknown) *Please continue (units (unknown) date) to take your unknown) regular medications as directed. (unknown) (no (unknown) (unknown) Date of Service: (units (unknown) date) 08/13/21 unknown) (unknown) (no (unknown) (unknown) (no value) (units (unk nown) date) unknown) (unknown) (no (unknown) (unknown) <Electronically (units (unknown) date) signed by Nicolas unknownCornell Whitehead D.O.> (unknown) (no (unknown) (unknown) 08/14/21 0235 (units ( unknown) date) unknown) (unknown) (no (unknown) (unknown) [address] (units (unknown) date) unknown) (unknown) (no (unknown) (unknown) 750 mg PO DAILY (units (unknown) date) 10 Days 0RF unknown) (unknown) (no (unknown) (unknown) Allergies (units (unkn own) date) unknown) (unknown) (no (unknown) (unknown) [place] (units ( unknown) date) [id number] unknown) (unknown) (no (unknown) (unknown) Close (units (unkno wn) date) unknown) (unknown) (no (unknown) (unknown) Documented by: (units (unknown) date) BLANCA unknown) (unknown) (no (unknown) (unknown) ED Orders (units (unkn own) date) unknown) (unknown) (no (unknown) (unknown) Emergency Report (units (unknown) date) unknown) (unknown) (no (unknown) (unknown) [facility] (units (unknown) date) unknown) (unknown) (no (unknown) (unknown) [facility] (units (unknown) date) [address] unknown) [place] [address] (unknown) (no (unknown) (unknown) Lab Results (units (un known) date) unknown) (unknown) (no (unknown) (unknown) Last Admin: (units (un known) date) 08/13/21 22:01 unknown) Dose: 1 bottle (unknown) (no (unknown) (unknown) Last Admin: (units (un known) date) 08/13/21 22:01 unknown) Dose: 500 mg (unknown) (no (unknown) (unknown) Last Admin: (units (un known) date) 08/13/21 22:02 unknown) Dose: 2.1 ml (unknown) (no (unknown) (unknown) Launch?Image (units (u nknown) date) unknown) (unknown) (no (unknown) (unknown) Previous Rx's (units ( unknown) date) unknown) (unknown) (no (unknown) (unknown) Signed (units (unkno wn) date) unknown) (unknown) (no (unknown) (unknown) Stop: 08/13/21 (units (unknown) date) 21:49 unknown) (unknown) (no (unknown) (unknown) Ultrasound (units (unk nown) date) Report unknown) (unknown) (no (unknown) (unknown) Vital Signs - 8 (units (unknown) date) hr unknown) (unknown) (no (unknown) (unknown) [ ] New (units (unkno wn) date) medication unknown) written as a paper prescription (unknown) (no (unknown) (unknown) [ ] No new (units (unk nown) date) medications given unknown) (unknown) (no (unknown) (unknown) [x ] New (units (unkno wn) date) medication unknown) prescriptions sent to your pharmacy: [[facility] (unknown) (no (unknown) (unknown) (no value) (units (unk nown) date) unknown) (unknown) (no (unknown) (unknown) 08/13/21 (units (unkno wn) date) 08/13/21 unknown) Range/Units (unknown) (no (unknown) (unknown) 18:05 18:05 (units (un known) date) unknown) (unknown) (no (unknown) (unknown) levofloxacin 750 (units (unknown) date) mg tablet unknown) (unknown) (no (unknown) (unknown) 08/13/21 (units (unkno wn) date) unknown) (unknown) (no (unknown) (unknown) Epididymitis, (units ( unknown) date) Left varicocele unknown) (unknown) (no (unknown) (unknown) Medication (units (unk nown) date) Instructions unknown) Recorded (unknown) (no (unknown) (unknown) SEEINSTR ONE (units (u nknown) date) unknown) (unknown) (no (unknown) (unknown) obvious (units (unkno wn) date) distress. unknown) (unknown) (no (unknown) (unknown) rales, or (units (unkn own) date) rhonchi. unknown) (unknown) (no (unknown) (unknown) (More??) (units (unkno wn) date) unknown) (unknown) (no (unknown) (unknown) *I have also (units (un known) date) included the unknown) contact info for on-call Urology as we discussed, this (unknown) (no (unknown) (unknown) *Please follow (units (unknown) date) up with your unknown) primary care provider in 2-3 days, call for an (unknown) (no (unknown) (unknown) *Return to (units (unk nown) date) Emergency unknown) Department if you should have any new, worsening or (unknown) (no (unknown) (unknown) *What to do: (units (u nknown) date) unknown) (unknown) (no (unknown) (unknown) *You have been (units (unknown) date) diagnosed with unknown) [acute epididymitis and left sided varicocele (unknown) (no (unknown) (unknown) - (units (unkno wn) date) unknown) (unknown) (no (unknown) (unknown) [id number] (units (unkn own) date) unknown) (unknown) (no (unknown) (unknown) 08/13/21 (units (unkno wn) date) unknown) (unknown) (no (unknown) (unknown) 08/13/21 18:05 (units (unknown) date) unknown) (unknown) (no (unknown) (unknown) 08/13/21 19:20 (units (unknown) date) unknown) (unknown) (no (unknown) (unknown) 1. Left (units (unkno wn) date) varicocele unknown) demonstrated. (unknown) (no (unknown) (unknown) 12 point review (units (unknown) date) of systems is unknown) negative except for those stated above (unknown) (no (unknown) (unknown) 2. Mild (units (unkno wn) date) increased unknown) vascularity within the left epididymis may reflect a possible (unknown) (no (unknown) (unknown) 21:03 08/13/21 (units (unknown) date) unknown) (unknown) (no (unknown) (unknown) 21:04 (units (unkno wn) date) unknown) (unknown) (no (unknown) (unknown) 26-year-old male (units (unknown) date) presents with his unknown) and a chief complaint of left (unknown) (no (unknown) (unknown) ? (units (unkno wn) date) unknown) (unknown) (no (unknown) (unknown) ? (units (unkno wn) date) unknown) (unknown) (no (unknown) (unknown) Accession (units (unkn own) date) Number: unknown) [id number] ?? (unknown) (no (unknown) (unknown) Acct:[id number] (units (unknown) date) unknown) (unknown) (no (unknown) (unknown) Activity (units (unkno wn) date) Restrictions/Chi unknown) tional Instructions: (unknown) (no (unknown) (unknown) Age/Sex: 26 / M (units (unknown) date) unknown) (unknown) (no (unknown) (unknown) Age/Sex: 26 / M (units (unknown) date) unknown) (unknown) (no (unknown) (unknown) Allergy/Adv: No (units (unknown) date) Known Drug unknown) Allergies (unknown) (no (unknown) (unknown) Allergy/AdvReac (units (unknown) date) Type Severity unknown) Reaction Status Date / Time (unknown) (no (unknown) (unknown) Amorphous (units (unkn own) date) Sediment 1+ unknown) (unknown) (no (unknown) (unknown) Approved by: (units (u nknown) date) Rafal Stovall unknown) Krish on 08/13/2021 at 20:49 ? (unknown) (no (unknown) (unknown) BACK: Nontender (units (unknown) date) without deformity unknown) or crepitance. No flank tenderness. (unknown) (no (unknown) (unknown) Blood Pressure (units (unknown) date) 111/70 unknown) (unknown) (no (unknown) (unknown) Blood Pressure (units (unknown) date) 130/75 08/13/21 unknown) 17:51 (unknown) (no (unknown) (unknown) CARDIOVASCULAR: (units (unknown) date) Denies chest unknown) pain, palpitations, orthopnea, edema, (unknown) (no (unknown) (unknown) CARDIOVASCULAR: (units (unknown) date) Regular rate and unknown) rhythm without murmurs, gallops, or rubs. (unknown) (no (unknown) (unknown) COMPARISON:? (units (u nknown) date) None. unknown) (unknown) (no (unknown) (unknown) Ceftriaxone (units (un known) date) Sodium unknown) (Ceftriaxone 1,000 Mg Vial) 500 mg IM NOW ONE (unknown) (no (unknown) (unknown) Chief complaint: (units (unknown) date) Urogenital-Male unknown) (unknown) (no (unknown) (unknown) Chlamydia (units (unkn own) date) Gonorrhea PCR unknown) -URINE Stat (unknown) (no (unknown) (unknown) Clinical (units (unkno wn) date) Impression: unknown) (unknown) (no (unknown) (unknown) Color and pulse (units (unknown) date) Doppler unknown) interrogation was performed of both testicles.? (unknown) (no (unknown) (unknown) Course (units (unkno wn) date) unknown) (unknown) (no (unknown) (unknown) : 1995 (units (unknown) date) Acct:[id number] unknown) (unknown) (no (unknown) (unknown) : 1995 (units (unknown) date) unknown) (unknown) (no (unknown) (unknown) Date of Service: (units (unknown) date) 08/13/21 unknown) (unknown) (no (unknown) (unknown) Departure (units (unkn own) date) unknown) (unknown) (no (unknown) (unknown) Dictated by: (units (u nknown) date) Rafal Stovall, unknown) Krish on 08/13/2021 at 20:45 ? ? (unknown) (no (unknown) (unknown) Discharge Plan (units (unknown) date) unknown) (unknown) (no (unknown) (unknown) Discontinued (units (u nknown) date) Medications unknown) (unknown) (no (unknown) (unknown) Doppler:? Color (units (unknown) date) and pulse Doppler unknown) demonstrate patent arterial and venous flow (unknown) (no (unknown) (unknown) ENT: Nose (units (unkn own) date) without bleeding, unknown) purulent drainage. Throat without erythema, (unknown) (no (unknown) (unknown) ER Physician: (units ( unknown) date) Nicolas Whitehead unknown) D.O. (unknown) (no (unknown) (unknown) EXTREMITIES: No (units (unknown) date) edema or joint unknown) tenderness. (unknown) (no (unknown) (unknown) EYES: Pupils (units (u nknown) date) equal round and unknown) reactive. Extraocular motions intact. No scleral (unknown) (no (unknown) (unknown) Epididymis is (units ( unknown) date) normal in overall unknown) size and morphology.? No hydrocele or (unknown) (no (unknown) (unknown) Epididymis is (units ( unknown) date) normal in overall unknown) size and morphology.? There is suggestion of (unknown) (no (unknown) (unknown) Exam (units (unkno wn) date) unknown) (unknown) (no (unknown) (unknown) Exam Narrative: (units (unknown) date) unknown) (unknown) (no (unknown) (unknown) FINDINGS:? (units (unk nown) date) unknown) (unknown) (no (unknown) (unknown) GASTROINTESTINAL (units (unknown) date) : Abdomen soft, unknown) non-tender, nondistended. (unknown) (no (unknown) (unknown) GASTROINTESTINAL (units (unknown) date) : Denies nausea, unknown) vomiting, abdominal pain, diarrhea, (unknown) (no (unknown) (unknown) GENERAL: See (units ( unknown) date) HPI unknown) (unknown) (no (unknown) (unknown) GENERAL: [26] (units (u nknown) date) year old patient unknown) appears stated age. Well-developed patient, in no (unknown) (no (unknown) (unknown) : See HPI (units (u nknown) date) unknown) (unknown) (no (unknown) (unknown) : no penile (units ( unknown) date) lesions, unknown) swelling, drainage. L testicle tender to palpate at (unknown) (no (unknown) (unknown) General (units (unkno wn) date) unknown) (unknown) (no (unknown) (unknown) HEAD: (units (unkno wn) date) Atraumatic. unknown) Normocephalic. (unknown) (no (unknown) (unknown) HEENT: Denies (units ( unknown) date) sinus pain, ear unknown) pain, sore throat, difficulty swallowing, (unknown) (no (unknown) (unknown) HPI - Male (units (unk nown) date) Genitourinary unknown) (unknown) (no (unknown) (unknown) HPI Narrative: (units (unknown) date) unknown) (unknown) (no (unknown) (unknown) He has no fever (units (unknown) date) chills nor unknown) nausea, vomiting or diarrhea. He has no chest pain (unknown) (no (unknown) (unknown) History of (units (unk nown) date) Present Illness unknown) (unknown) (no (unknown) (unknown) Hydrocodone (units (unk nown) date) Bitart/Acetaminop unknown) hen (Hydrocodone/Acet 5/325 Prepack) 1 bottle MISC (unknown) (no (unknown) (unknown) IMPRESSION:? (units (u nknown) date) unknown) (unknown) (no (unknown) (unknown) INDICATIONS:? (units ( unknown) date) TESTICULAR PAIN unknown) (unknown) (no (unknown) (unknown) Imaging Data (units (u nknown) date) unknown) (unknown) (no (unknown) (unknown) Initial Vital (units ( unknown) date) Signs unknown) (unknown) (no (unknown) (unknown) Initial Vital (units ( unknown) date) Signs: unknown) (unknown) (no (unknown) (unknown) Instructions: (units ( unknown) date) Epididymitis, unknown) Varicocele (unknown) (no (unknown) (unknown) Smiley Calle, (units (unknown) date) [Physician] - unknown) (unknown) (no (unknown) (unknown) Lab Data (units (unkno wn) date) unknown) (unknown) (no (unknown) (unknown) Labs: (units (unkno wn) date) unknown) (unknown) (no (unknown) (unknown) Left:? Testicle (units (unknown) date) measures 3.9 x unknown) 2.5 x 2.6 cm and appears homogeneous in (unknown) (no (unknown) (unknown) Levofloxacin (units (u nknown) date) (Levofloxacin 250 unknown) Mg Tablet) 500 mg PO NOW ONE (unknown) (no (unknown) (unknown) Lidocaine HCl (units ( unknown) date) (Lidocaine 1% unknown) (Pf) 5 Ml) 2.1 ml INJ NOW ONE (unknown) (no (unknown) (unknown) Loc: ED (units (unkno wn) date) unknown) (unknown) (no (unknown) (unknown) MDM - Male (units (unk nown) date) Genitourinary unknown) (unknown) (no (unknown) (unknown) MDM Narrative (units ( unknown) date) unknown) (unknown) (no (unknown) (unknown) MR#: [id number] (units (unknown) date) unknown) (unknown) (no (unknown) (unknown) MUSCULOSKELETAL: (units (unknown) date) denies weakness, unknown) joint pain, or bony pain (unknown) (no (unknown) (unknown) Medical decision (units (unknown) date) making narrative: unknown) (unknown) (no (unknown) (unknown) Mode of arrival: (units (unknown) date) Ambulatory unknown) (unknown) (no (unknown) (unknown) N gonorrhoeae (units ( unknown) date) DNA (PCR) Not unknown) detected (unknown) (no (unknown) (unknown) NECK: Trachea (units ( unknown) date) midline. Non unknown) tender (unknown) (no (unknown) (unknown) NEURO: AOx3. (units (u nknown) date) unknown) (unknown) (no (unknown) (unknown) NEUROLOGIC: (units (un known) date) Denies weakness, unknown) headache, numbness, change in speech, confusion, (unknown) (no (unknown) (unknown) Narrative (units (unkn own) date) unknown) (unknown) (no (unknown) (unknown) Narrative: (units (unk nown) date) unknown) (unknown) (no (unknown) (unknown) New (units (unkno wn) date) unknown) (unknown) (no (unknown) (unknown) No Known Drug (units ( unknown) date) Allergies Allergy unknown) Verified 08/13/21 17:53 (unknown) (no (unknown) (unknown) Ordered: (units (unkno wn) date) unknown) (unknown) (no (unknown) (unknown) Ordering (units (unkno wn) date) Provider: unknown) Ama Barr (unknown) (no (unknown) (unknown) Orders (units (unkno wn) date) unknown) (unknown) (no (unknown) (unknown) Overlying (units (unkn own) date) scrotal skin is unknown) normal in thickness.? (unknown) (no (unknown) (unknown) PROCEDURE:? US (units (unknown) date) SCROTUM unknown) (unknown) (no (unknown) (unknown) PSYCHIATRIC: No (units (unknown) date) concerning unknown) psychosocial issues. (unknown) (no (unknown) (unknown) Patient (units (unkno wn) date) Disposition: Home unknown) (unknown) (no (unknown) (unknown) Patient with (units (u nknown) date) left testicular unknown) pain in the absence of injury with reassuring (unknown) (no (unknown) (unknown) Patient: (units (unkno wn) date) DemetriusSong lees Yoly unknown) MR#: M (unknown) (no (unknown) (unknown) Patient: (units (unkno wn) date) DemetriusSong lees unknown) (unknown) (no (unknown) (unknown) Rafal Stovall (units (un known) date) unknown) (unknown) (no (unknown) (unknown) Prescriptions: (units (unknown) date) unknown) (unknown) (no (unknown) (unknown) Procedure: US (units ( unknown) date) scrotum unknown) (unknown) (no (unknown) (unknown) Pulse Oximetry (units (unknown) date) 100 08/13/21 unknown) 17:51 (unknown) (no (unknown) (unknown) Pulse Oximetry (units (unknown) date) 94 99 unknown) (unknown) (no (unknown) (unknown) Pulse Rate 68 (units (unknown) date) unknown) (unknown) (no (unknown) (unknown) Pulse Rate 75 (units (unknown) date) 08/13/21 17:51 unknown) (unknown) (no (unknown) (unknown) Questions (units (unkn own) date) answered to their unknown) apparent satisfaction (unknown) (no (unknown) (unknown) RESPIRATORY: (units (un known) date) Clear to unknown) auscultation. Breath sounds equal bilaterally. No wheezes, (unknown) (no (unknown) (unknown) RESPIRATORY: (units (u nknown) date) Denies dyspnea, unknown) cough, wheezing, hemoptysis, sputum. (unknown) (no (unknown) (unknown) Real-time (units (unkn own) date) scanning was unknown) performed of the scrotum and testicles, with image (unknown) (no (unknown) (unknown) Referrals: (units (unk nown) date) unknown) (unknown) (no (unknown) (unknown) Related Data (units (u nknown) date) unknown) (unknown) (no (unknown) (unknown) Respiratory Rate (units (unknown) date) 20 08/13/21 unknown) 17:51 (unknown) (no (unknown) (unknown) Review of (units (unkn own) date) Systems unknown) (unknown) (no (unknown) (unknown) Right:? Testicle (units (unknown) date) measures 4.1 x unknown) 2.7 x 2.6 cm and appears homogenous in (unknown) (no (unknown) (unknown) SKIN: Denies (units (u nknown) date) rash, skin unknown) lesions, or other (unknown) (no (unknown) (unknown) SKIN: No rash or (units (unknown) date) erythema of unknown) visible areas (unknown) (no (unknown) (unknown) Song Romo (units (unknown) date) A??27??M?? unknown) 995 (unknown) (no (unknown) (unknown) Scrotal US: (units (un known) date) unknown) (unknown) (no (unknown) (unknown) Scrotum (units (unkno wn) date) Ultrasound unknown) (Signed) (unknown) (no (unknown) (unknown) Signed By: (units (unk nown) date) unknown) (unknown) (no (unknown) (unknown) Source: patient (units (unknown) date) unknown) (unknown) (no (unknown) (unknown) Stated (units (unkno wn) date) complaint: unknown) SCROTAL AND LEFT TESICULAR PAIN (unknown) (no (unknown) (unknown) TECHNIQUE:? (units (un known) date) unknown) (unknown) (no (unknown) (unknown) Temperature (units (un known) date) 98.9 F 08/13/21 unknown) 17:51 (unknown) (no (unknown) (unknown) Time Seen by (units (u nknown) date) Provider: unknown) 08/13/21 19:19 (unknown) (no (unknown) (unknown) US scrotum Stat (units (unknown) date) unknown) (unknown) (no (unknown) (unknown) Ur Chlamydia DNA (units (unknown) date) (PCR) Not unknown) detected (unknown) (no (unknown) (unknown) Ur Culture (units (unk nown) date) Indicated? Cult unknown) not indicated (unknown) (no (unknown) (unknown) Ur Leukocyte (units (u nknown) date) Esterase unknown) Negative (NEGATIVE) (unknown) (no (unknown) (unknown) Ur Specific (units (un known) date) [place] 1.020 unknown) (1.000-1.035) (unknown) (no (unknown) (unknown) Ur Squamous (units (un known) date) Epith Cells 0-1 unknown) /hpf (0-5/HPF) (unknown) (no (unknown) (unknown) Urinalysis and (units (unknown) date) Microscopic Stat unknown) (unknown) (no (unknown) (unknown) Urine Appearance (units (unknown) date) Sl cloudy unknown) (unknown) (no (unknown) (unknown) Urine Bacteria (units (unknown) date) None seen unknown) (None) (unknown) (no (unknown) (unknown) Urine Bilirubin (units (unknown) date) Negative unknown) (NEGATIVE) (unknown) (no (unknown) (unknown) Urine Color (units (un known) date) Yellow unknown) (unknown) (no (unknown) (unknown) Urine Glucose (units ( unknown) date) (UA) Negative unknown) (Negative) g/dL (unknown) (no (unknown) (unknown) Urine Ketones (units ( unknown) date) Negative unknown) (NEGATIVE) (unknown) (no (unknown) (unknown) Urine Nitrate (units ( unknown) date) Negative unknown) (Negative) (unknown) (no (unknown) (unknown) Urine Occult (units (u nknown) date) Blood 2+ H unknown) (Negative) (unknown) (no (unknown) (unknown) Urine Protein (units ( unknown) date) Trace H unknown) (Negative) (unknown) (no (unknown) (unknown) Urine RBC (units (unkn own) date) 1-5/hpf unknown) (0-5/HPF) (unknown) (no (unknown) (unknown) Urine (units (unkno wn) date) Urobilinogen 0.2 unknown) (0.2) E.U./dL (unknown) (no (unknown) (unknown) Urine WBC (units (unkn own) date) 0-1/hpf unknown) (0-5/HPF) (unknown) (no (unknown) (unknown) Urine pH 7.0 (units ( unknown) date) (4.5-8.0) unknown) (unknown) (no (unknown) (unknown) Valsalva.? (units (unk nown) date) unknown) (unknown) (no (unknown) (unknown) Vital Signs (units (un known) date) unknown) (unknown) (no (unknown) (unknown) Vital signs: (units (u nknown) date) unknown) (unknown) (no (unknown) (unknown) appointment. Let (units (unknown) date) them know you unknown) were seen in the Emergency Department and that we (unknown) (no (unknown) (unknown) ask that you be (units (unknown) date) seen in follow unknown) up. We will electronically transmit a record of (unknown) (no (unknown) (unknown) complains of (units (u nknown) date) dysuria off and unknown) on for some time. He denies any penile discharge. (unknown) (no (unknown) (unknown) concerning (units (unk nown) date) symptoms, such as unknown) [fever greater than 101 F, shaking chills, (unknown) (no (unknown) (unknown) constipation, (units ( unknown) date) melena. unknown) (unknown) (no (unknown) (unknown) dizziness. (units (unk nown) date) unknown) (unknown) (no (unknown) (unknown) documentation.? (units (unknown) date) unknown) (unknown) (no (unknown) (unknown) echotexture.? (units ( unknown) date) unknown) (unknown) (no (unknown) (unknown) epididymitis. (units ( unknown) date) unknown) (unknown) (no (unknown) (unknown) icterus. No (units (un known) date) injection or unknown) drainage. (unknown) (no (unknown) (unknown) in [place] ] (units (unknown) date) unknown) (unknown) (no (unknown) (unknown) increased (units (unkn own) date) vascularity unknown) within the epididymis.? No hydrocele.? There is a left (unknown) (no (unknown) (unknown) intercourse and (units (unknown) date) ABX tx for unknown) epididymitis reflects this. There is no evidence of (unknown) (no (unknown) (unknown) is another (units (unk nown) date) appropriate unknown) option for follow-up (unknown) (no (unknown) (unknown) levofloxacin 750 (units (unknown) date) mg tablet 750 mg unknown) PO DAILY 10 Days tab 08/13/21 (unknown) (no (unknown) (unknown) measuring up to (units (unknown) date) approximately 0.4 unknown) cm with increased vascularity during (unknown) (no (unknown) (unknown) mild (units (unkno wn) date) unknown) (unknown) (no (unknown) (unknown) obvious inguinal (units (unknown) date) tenderness or unknown) swelling to suggest hernia (unknown) (no (unknown) (unknown) or shortness of (units (unknown) date) breath. unknown) (unknown) (no (unknown) (unknown) patient and (units (un known) date) spouse. Return unknown) precautions discussed and importance of follow-up. (unknown) (no (unknown) (unknown) seizures, (units (unkn own) date) incoordination. unknown) (unknown) (no (unknown) (unknown) states the pain (units (unknown) date) is worse when he unknown) moves and with palpation. Additionally he (unknown) (no (unknown) (unknown) superior pole, (units (unknown) date) no obvious unknown) swelling, erythema or other abnormal finding. No (unknown) (no (unknown) (unknown) testicles (units (unkn own) date) bilaterally.? No unknown) definite asymmetrically increased flow demonstrated. (unknown) (no (unknown) (unknown) testicular pain (units (unknown) date) for the past day unknown) or 2. He denies any trauma or injury. He (unknown) (no (unknown) (unknown) today's note if (units (unknown) date) your PCP is in unknown) our system (unknown) (no (unknown) (unknown) tonsillar (units (unkn own) date) hypertrophy or unknown) exudate. Airway patent. (unknown) (no (unknown) (unknown) torsion or (units (unk nown) date) incarcerated unknown) hernia. Varicocele is noted. Diagnosis discussed with (unknown) (no (unknown) (unknown) urine. US notes (units (unknown) date) varicocele and unknown) left-sided epididymitis. He does engage in anal (unknown) (no (unknown) (unknown) varicocele (units (unk nown) date) unknown) (unknown) (no (unknown) (unknown) varicoceles.? (units ( unknown) date) unknown) (unknown) (no (unknown) (unknown) within the (units (unk nown) date) unknown) (unknown) (no (unknown) (unknown) worsening pain, (units (unknown) date) persistent unknown) vomiting or other bothersome symptoms] Social History date description facility +0000 Never smoker All +0000 Never smoker All Vital Signs date measurement value units +0000 BMI BMI 23.41 kg/m2 +0000 BP_diastolic BP_diastolic 72 mm[H g] +0000 BP_systolic BP_systolic 118 mm[Hg] +0000 heart_rate heart_rate 72 /min +0000 height_metric height_metric 182.88 cm +0000 height_standard height_standard 72 in +0000 respiration_rate respiration_rate 16 /min +0000 temperature_metric temperature_metric 36.44 C +0000 temperature_standard temperature_standard 9 7.6 F +0000 weight_metric weight_metric 78.02 kg +0000 weight_standard weight_standard 172 lb [id number]+0000 BP_diastolic BP_diastolic 70 mm[H g] [id number]+0000 BP_systolic BP_systolic 111 mm[Hg] [id number]+0000 heart_rate heart_rate 68 /min +0000 respiration_rate respiration_rate 20 /min [id number]+0000 temperature_metric temperature_metric 37.17 C +0000 temperature_standard temperature_standard 9 8.9 F +0000 weight_metric weight_metric 77.11 kg +0000 weight_standard weight_standard 170 lb
--- NOTE | 2021-09-27 12:25 | ED Physician Documentation ---
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 No associated URI symptoms but has had low-grade fevers. Review of Systems Constitutional: reports: Fever. denies: Chills Nose: denies: Rhinorrhea / runny nose, Congestion Throat: denies: Sore throat PD PAST MEDICAL HISTORY - Past Medical History Cardiovascular: None Respiratory: None Neuro: None Endocrine/Autoimmune: None - Past Surgical History Past Surgical History: No - Present Medications Home Medications: Ambulatory Orders Medication Instructions Recorded Confirmed Amoxicillin 500 mg PO TID #30 cap 09/27/21 - Allergies Allergies/Adverse Reactions: Allergies Allergy/AdvReac Type Severity Reaction Status Date / Time No Known Drug Allergies Allergy Verified 06/30/21 18:55 - Social History Does the pt smoke?: No Smoking Status: Never smoker Does the pt drink ETOH?: No Does the pt have substance abuse?: No - Immunizations Immunizations are current?: No - POLST Patient has POLST: No PD ED PE NORMAL - Vitals Vital signs reviewed: Yes - General General: Alert and oriented X 3, No acute distress - HEENT HEENT: Other (On initial exam the left TM was occluded by cerumen with mild right otitis media, after clearing the cerumen, the left TM also demonstrated mild otitis media.) - Neck Neck: Supple, no meningeal sign, No bony TTP - Neuro Neuro: Alert and oriented X 3, Normal speech Results - Vitals Vitals: Vital Signs - 24 hr 09/27/21 11:24 Temperature 36.9 C Heart Rate 79 Respiratory 18 Rate Blood Pressure 133/63 H O2 Saturation 100 Oxygen O2 Source Room air Procedures - General procedure General procedure: Using body temperature water syringe irrigation the left ear was cleared of cerumen. Departure - Departure Disposition: 01 Home, Self Care Clinical Impression: Cerumen impaction Qualifiers: Laterality: left Qualified Code(s): H61.22 - Impacted cerumen, left ear Otitis media Qualifiers: Otitis media type: suppurative Chronicity: acute Laterality: bilateral Recurrence: non-recurrent Spontaneous tympanic membrane rupture: without spontaneous rupture Qualified Code(s): H66.003 - Acute suppurative otitis media without spontaneous rupture of ear drum, bilateral Condition: Stable Record reviewed to determine appropriate education?: Yes Instructions: ED Otitis Media Acute Adult Prescriptions: Amoxicillin 500 mg PO TID #30 cap Comments: Call your doctor to arrange a follow-up appointment, make an appointment for 1 week from now for recheck. In the interim, return anytime if worse or if new symptoms develop.
== END 2021-09-27 12:30 | disposition home or self-care (01) ==
LOC: ED 11:15
DX: H61.22 Impacted cerumen, left ear (principal); H66.003 Acute suppurative otitis media without spontaneous rupture of ear drum, bilateral
CPT/HCPCS: 69209; 99282

== ENCOUNTER 2022-08-21 17:23 | Emergency (ER) | payer OTHER ==
[2022-08-21 17:32] VITALS: BP 125/68
--- NOTE | 2022-08-21 17:47 | ED Physician Documentation ---
PD HPI HEENT - Stated complaint Stated Complaint: NECK PX - Chief complaint Chief Complaint: Heent - History obtained from History obtained from: Patient - Additional information Additional information: This is an otherwise healthy 27-year-old gentleman who is and homosexual. His has HIV and is on [place], but has a detectable viral load. 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 He returned 2 weeks ago and has had sex a single time since then, using condoms for prophylaxis. He has not restarted his prep. He developed left-sided neck pain yesterday and it hurts to swallow and he is concerned about adenopathy and HIV seroconversion. PD PAST MEDICAL HISTORY - Past Medical History Past Medical History: No Cardiovascular: None Respiratory: None Neuro: None Endocrine/Autoimmune: None GI: None : None HEENT: None Psych: None Musculoskeletal: None Derm: None - Past Surgical History Past Surgical History: No - Present Medications Home Medications: Ambulatory Orders Medication Instructions Recorded Confirmed No Known Home Medications 08/21/22 08/21/22 - Allergies Allergies/Adverse Reactions: Allergies Allergy/AdvReac Type Severity Reaction Status Date / Time No Known Drug Allergies Allergy Verified 08/21/22 17:31 - Social History Does the pt smoke?: No Smoking Status: Never smoker Does the pt drink ETOH?: No Does the pt have substance abuse?: No - Immunizations Immunizations are current?: No - POLST Patient has POLST: No PD ED PE NORMAL - Vitals Vital signs reviewed: Yes - General General: Alert and oriented X 3, No acute distress - HEENT HEENT: PERRL, EOMI - Neck Neck: Other (He has large tonsils, not necessarily inflamed but large. He is tender to the left cervical lymph node chain without obvious adenopathy clinically.) - Derm Derm: No rash - Neuro Neuro: Alert and oriented X 3, Normal speech Results - Vitals Vitals: Vital Signs - 24 hr 08/21/22 17:24 Temperature 36.2 C L Heart Rate 62 Respiratory 16 Rate Blood Pressure 125/68 O2 Saturation 100 Oxygen O2 Source Room air - Labs Labs: Laboratory Tests 08/21/22 08/21/22 08/21/22 17:50 17:54 17:54 WBC 7.0 RBC 4.98 Hgb 14.9 Hct 43.2 MCV 86.7 MCH 29.9 MCHC 34.5 RDW 11.9 L Plt Count 217 MPV 9.8 Neut # (Auto) 3.8 Lymph # (Auto) 2.6 [place] # (Auto) 0.5 Eos # (Auto) 0.1 Baso # (Auto) 0.0 Absolute Nucleated RBC 0.00 Nucleated RBC % 0.0 Sodium Potassium Chloride Carbon Dioxide Anion Gap BUN Creatinine Estimated GFR (MDRD) Glucose Calcium Total Bilirubin AST ALT Alkaline Phosphatase Total Protein Albumin Globulin Albumin/Globulin Ratio HIV 1&2 Antibody Rapid Infectious [place] Assay NEGATIVE Group A Strep Rapid Negative 08/21/22 08/21/22 17:54 17:54 WBC RBC Hgb Hct MCV MCH MCHC RDW Plt Count MPV Neut # (Auto) Lymph # (Auto) [place] # (Auto) Eos # (Auto) Baso # (Auto) Absolute Nucleated RBC Nucleated RBC % Sodium 138 Potassium 3.8 Chloride 102 Carbon Dioxide 28 Anion Gap 8.0 BUN 19 Creatinine 1.5 H Estimated GFR (MDRD) 56 L Glucose 96 Calcium 8.8 Total Bilirubin 0.7 AST 34 ALT 29 Alkaline Phosphatase 54 Total Protein 8.0 Albumin 4.3 Globulin 3.7 Albumin/Globulin Ratio 1.2 HIV 1&2 Antibody Rapid NEGATIVE Infectious [place] Assay Group A Strep Rapid PD Medical Decision Making - ED course ED course: 27-year-old gentleman presents with left neck pain, he is concern for adenopathy and potential for HIV seroconversion. HIV test is negative but RNA pending on discharge. That said he does not have the typical findings on CBC or elevated liver enzymes that would suggest acute seroconversion. Ultrasound of the neck shows borderline large lymph nodes. Departure - Departure Disposition: 01 Home, Self Care Clinical Impression: Neck pain Condition: Good Record reviewed to determine appropriate education?: Yes Comments: You were seen today for neck pain, concern for lymph node enlargement. 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 An HIV test and a strep test were negative. I do have pending a HIV RNA test, I will call you if it is positive. Return for new or worsening symptoms. Ibuprofen as needed for the pain. Do follow-up with your flight surgeon and discuss this visit. I do recommend restarting your Truvada PrEP. Discharge Date/Time: 08/21/22 20:28
[2022-08-21 17:59] LABS: BASOPHILS % (AUTO) 0.4 %; EOSINOPHILS # (AUTO) 0.1 10^3/uL (0.0-0.7); EOSINOPHILS % (AUTO) 1.7 %; HCT - HEMATOCRIT 43.2 % (42.0-52.0); HGB - HEMOGLOBIN 14.9 g/dL (14.0-18.0); LYMPHOCYTES # (AUTO) 2.6 10^3/uL (1.5-3.5); LYMPHOCYTES % (AUTO) 36.8 %; MEAN CORPUSCULAR HEMOGLOBIN 29.9 pg (27.0-31.0); MEAN CORPUSCULAR HGB CONC 34.5 g/dL (32.0-36.0); MEAN CORPUSCULAR VOLUME 86.7 fL (80.0-94.0); MEAN PLATELET VOLUME 9.8 fL (7.4-11.4); MONOCYTES # (AUTO) 0.5 10^3/uL (0.0-1.0); MONOCYTES % (AUTO) 7.3 %; NEUTROPHILS # (AUTO) 3.8 10^3/uL (1.5-6.6); NEUTROPHILS % (AUTO) 53.5 %; PLT - PLATELET COUNT 217 10^3/uL (130-450); RED BLOOD COUNT 4.98 10^6/uL (4.70-6.10); RED CELL DISTRIBUTION WIDTH 11.9 % (12.0-15.0)
[2022-08-21 18:09] LABS: INFECTIOUS MONONUCLEOSIS NEGATIVE (Negative)
[2022-08-21 18:11] LABS: ALBUMIN 4.3 g/dL (3.2-5.5); ALBUMIN/GLOBULIN RATIO 1.2 (1.0-2.2); BILIRUBIN,TOTAL 0.7 mg/dL (0.2-1.0); CALCIUM 8.8 mg/dL (8.5-10.3); CREATININE 1.5 mg/dL (0.6-1.2); POTASSIUM 3.8 mmol/L (3.5-5.0)
[2022-08-21 18:23] LABS: HIV RAPID SCREEN NEGATIVE (NEGATIVE)
[2022-08-21 18:26] LABS: RAPID STREP SCREEN Negative (Negative)
[2022-08-21] MEDS ORDERED: IBUPROFEN 600 MG TABLET PO STA (19:26)
--- NOTE | 2022-08-21 20:39 | Ultrasound Report ---
PROCEDURE: Head or Neck Soft Tissue INDICATIONS: L neck pain TECHNIQUE: Real-time scanning was performed of the neck, with image documentation. COMPARISON: None FINDINGS: Ultrasound evaluation in the area of pain in the left neck demonstrates a prominent lymph node measur ing up to 0.8 cm in short axis. IMPRESSION: 1. Cervical lymph node in the left neck in the area of pain is at the upper limits of normal in size. Findings are nonspecific but likely reactive. Reviewed by: Rafal Henley MD on 08/21/2022 8:38 PM PDT Approved by: Rafal Henley MD on 08/21/2022 8:38 PM PDT Station ID: [id number]
[2022-08-25 09:08] LABS: HIV-1 RNA BY PCR QUANT <20 copies/mL (.)
== END 2022-08-21 20:28 | disposition home or self-care (01) ==
LOC: ED 17:23
DX: M54.2 Cervicalgia (principal); Z20.6 Contact with and (suspected) exposure to human immunodeficiency virus [HIV]
CPT/HCPCS: 36415; 76536; 80053; 85025; 86308; 86703; 87070; 87430; 87536; 99283; 99284; A9270

== ENCOUNTER 2023-07-01 16:23 | Emergency (ER) | payer OTHER ==
[2023-07-01 16:44] VITALS: BP 130/79; O2SAT 100
[2023-07-01] MEDS: MECLIZINE 12.5 MG TABLET PO STA (17:40)
[2023-07-01] MEDS: ONDANSETRON ODT 4 MG TABLET TL STA (17:40)
[2023-07-01] MEDS: ONDANSETRON 4 MG/2 ML VIAL IVP STA (17:42)
--- NOTE | 2023-07-01 17:59 | ED Physician Documentation ---
PD HPI HEENT - Stated complaint Stated Complaint: DIZZINESS - Chief complaint Chief Complaint: Heent - Additional information Additional information: 27-year-old male with no pertinent past medical history presents emergency department for vertigo symptoms. Patient says that he has been feeling dizzy now for about 3 months he has been to his primary care provider who did not give him any medications and told him to just take a couple days off work gave him work note he said that has been resting and relaxing at home with no improvement of symptoms. He says that he feels like he is having right ear fullness no history of seasonal allergies he does endorse and some nausea and the dizziness symptoms present. He says he feels like the room is spinning around him and that sometimes he has to lay down because he feels like he is going to fall. He has had no recent illnesses no head trauma. PD PAST MEDICAL HISTORY - Past Medical History Cardiovascular: None Respiratory: None Neuro: None Endocrine/Autoimmune: None GI: None : None HEENT: None Psych: None Musculoskeletal: None Derm: None - Past Surgical History Past Surgical History: No - Present Medications Home Medications: Ambulatory Orders Medication Instructions Recorded Confirmed Cetirizine [ZyrTEC] 10 mg PO DAILY 30 Days #30 tablet 07/01/23 Meclizine [Antivert] 25 mg PO Q6H #15 tablet 07/01/23 Ondansetron Odt [Zofran Odt] 4 mg TL Q6H PRN #10 tablet 07/01/23 - Allergies Allergies/Adverse Reactions: Allergies Allergy/AdvReac Type Severity Reaction Status Date / Time No Known Drug Allergies Allergy Verified 07/01/23 16:38 - Social History Does the pt smoke?: No Smoking Status: Never smoker Does the pt drink ETOH?: No Does the pt have substance abuse?: No - Immunizations Immunizations are current?: No - POLST Patient has POLST: No PD ED PE NORMAL - Vitals Vital signs reviewed: Yes - General General: Alert and oriented X 3, No acute distress, Well developed/nourished - HEENT HEENT: Atraumatic, PERRL, EOMI, Moist mucous membranes, Other (bilateral impacted ) - Cardiac Cardiac: RRR, No gallop - Respiratory Respiratory: No respiratory distress, Clear bilaterally - Abdomen Abdomen: Normal bowel sounds, Soft, Non tender - Neuro Neuro: Alert and oriented X 3, insurance manager 2-12 intact, No motor deficit, No sensory deficit, Normal speech Eye Opening: Spontaneous Motor: Obeys Commands Verbal: Oriented GCS Score: 15 - Psych Psych: Normal mood, Normal affect Results - Vitals Vitals: Vital Signs - 24 hr 07/01/23 16:32 Temperature 36.3 C L Heart Rate 74 Respiratory 16 Rate Blood Pressure 130/79 O2 Saturation 100 Oxygen O2 Source Room air PD Medical Decision Making - ED course ED course: This patient presents with dizziness, most consistent with a peripheral cause, likely BPPV. No history of recent infection so doubt vestibular neuritis. History not consistent with meniere's disease. No history of trauma. No red flag features for central vertigo to include gradual onset, vertical/bidirectional or non-fatigable nystagmus, focal neurologic findings on exam (including inability to ambulate, ataxia, dysmetria). Presentation not consistent with an acute PANEL MACHINE SETTER infection, vertebral basilar artery insufficiency, cerebellar hemorrhage or infarction, intracranial mass or bleed. After patient received Zofran and meclizine he was able to tolerate ambulation any sort of activity significantly better. He was taught how to do Akin's maneuver and told how to look this up on YouTube and told to consistently do this over the next couple days. A prescription of meclizine, Zyrtec, Zofran was sent to his preferred pharmacy and he was also given the resource to would be dizzy the new physical therapist on the [place] who helps with the symptoms.All questions answered, return precautions given, at this point in time I believe that patient is safe for discharge. Departure - Departure Disposition: 01 Home, Self Care Clinical Impression: Vertigo Instructions: Meclizine, ED Vertigo Unspecified Prescriptions: Meclizine [Antivert] 25 mg PO Q6H #15 tablet Ondansetron Odt [Zofran Odt] 4 mg TL Q6H PRN #10 tablet PRN Reason: Nausea / Vomiting Cetirizine [ZyrTEC] 10 mg PO DAILY 30 Days #30 tablet Comments: Thank you for trusting us with your care, we have evaluated you for Your dizziness. I believe the symptoms you are experiencing is due to vertigo. We have given you medication called meclizine to help with your vertigo symptoms which did help I have also given you a medication for seasonal allergies called Zyrtec you can buy this [id number] I believe you do have some symptoms of seasonal allergies although you have never been formally diagnosed with this. I have also prescribed Zofran to help with the nausea that you are experiencing with the dizziness. As we discussed it is very important that you are looking at vertigo exercises on YouTube and that you are doing is very frequently. The first exercise that I would do at home is called Akin's maneuver. [place] her phone number [place] [phone]. Feel free to come back to the emergency department if her symptoms do not get any better or get worse over the next couple days after doing the exercises above. Forms: PCP List Discharge Date/Time: 07/01/23 18:13
[2023-07-01] MEDS: CETIRIZINE 10 MG TABLET PO STA (18:06)
== END 2023-07-01 18:13 | disposition home or self-care (01) ==
LOC: ED 16:23
DX: R42 Dizziness and giddiness (principal); R11.0 Nausea
CPT/HCPCS: 99282; 99283; A9270; Q0162